=== PATIENT | male | born 1960 | race Caucasian/White ===

== ENCOUNTER 2017-10-10 09:07 | Emergency (ER) | payer MEDICAID ==
[2017-10-10] MEDS ORDERED: Acetaminophen/HYDROcodone 325-5 MG Tab ONE (09:30)
[2017-10-10] MEDS ORDERED: Ondansetron 4 MG Tab.DIS ONE (09:30)
--- NOTE | 2017-10-10 09:35 | EDM.PDOC ---
ED HPI GENERAL MEDICAL PROBLEM - General Chief Complaint: General Stated Complaint: ALLERGIC REACTION Time Seen by Provider: 10/10/17 09:20 Source of Information: Reports: Patient, RN History Limitations: Reports: No Limitations - History of Present Illness INITIAL COMMENTS - FREE TEXT/NARRATIVE: 57 yr male presents with severe lower right flank pain. States no hematuria. He is from [place] and has been here ice fishing and getting ready to go home today. States no injury to back and no heavy lifting done. States significant hx of CAD with CABG and diabetes Type 2. States blood sugar this am was 180. Pt moaning with pain. Toradol 60 mg IM given and pt had taken oxycodone before he got here. Pt has started a new diabetic injectable medication. Pt started vomiting now 934. Urine sample taken. Onset: Today, Sudden Onset Date: 10/10/17 Location: Reports: Other (flank pain/lower back pain) Right Flank Pain Score (Numeric/FACES): 10 - Related Data Allergies Allergy/AdvReac Type Severity Reaction Status Date / Time prochlorperazine Allergy Leg Cramps Verified 10/10/17 10:40 [From Compazine] ED ROS GENERAL - Review of Systems Review Of Systems: See Below GI/Abdominal: Reports: Nausea, Vomiting : Reports: Flank Pain. Denies: Dysuria, Hematuria ED EXAM, GENERAL - Physical Exam Exam: See Below Exam Limited By: No Limitations General Appearance: Alert, Other (severe pain) Ears: Hearing Grossly Normal Nose: Normal Inspection Throat/Mouth: Normal Voice, No Airway Compromise Head: Atraumatic, Normocephalic Neck: Supple, Non-Tender Respiratory/Chest: No Respiratory Distress, Lungs Clear, Normal Breath Sounds Cardiovascular: Regular Rate, Rhythm, No Edema GI/Abdominal: Soft, Tender (upper GI tenderness and lower right flank pain). No : Rigid, Rebound Back Exam: Full Range of Motion, Other (right flank pain) Extremities: Normal Range of Motion Neurological: Alert, Oriented, Normal Cognition Skin Exam: Warm, Normal Color, Diaphoretic Lymphatic: No Adenopathy Course - Vital Signs Last Recorded V/S: Last Vital Signs Temp 96.5 F 10/10/17 09:12 Pulse 94 10/10/17 09:12 Resp 20 10/10/17 09:12 BP 153/77 H 10/10/17 09:12 Pulse Ox 100 10/10/17 09:12 - Orders/Labs/Meds Labs: Laboratory Tests 10/10/17 10/10/17 10/10/17 Range/Units 09:25 09:40 09:40 WBC 13.2 H (4.0-11.0) K/uL RBC 5.29 (4.50-6.50) M/uL Hgb 16.4 (13.0-18.0) g/dL Hct 48.5 (40.0-54.0) % MCV 92 (76-96) fL MCH 31.0 (27.0-32.0) pg MCHC 33.8 (31.0-35.0) g/dL RDW 14.5 (11.0-16.0) % Plt Count 151 (150-400) K/uL MPV 11.7 H (6.0-10.0) fL Neut % (Auto) 78.2 H (45.0-70.0) % Lymph % (Auto) 15.1 L (20.0-40.0) % [place] % (Auto) 5.1 (3.0-10.0) % Eos % (Auto) 1.3 (1.0-5.0) % Baso % (Auto) 0.3 (0.0-0.5) % Neut # (Auto) 10.35 H (2.00-7.50) K/uL Lymph # (Auto) 2.00 (1.50-4.00) K/uL [place] # (Auto) 0.67 (0.20-0.80) K/uL Eos # (Auto) 0.17 (0.04-0.40) K/uL Baso # (Auto) 0.04 (0.02-0.10) K/uL PT 37.2 H (9.0-11.5) sec INR 4.0 H (1.0-3.5) Sodium (136-145) mmol/L Potassium (3.5-5.1) mmol/L Chloride (98-107) mmol/L Carbon Dioxide (21.0-32.0) mmol/L Anion Gap (5.0-15.0) mmol/L BUN (8-26) mg/dL Creatinine (0.70-1.30) mg/dL Est Cr Clr Drug Dosing Estimated GFR (MDRD) (>60) MLS/MIN BUN/Creatinine Ratio (6-25) Glucose (74-100) mg/dL Calcium (8.5-10.1) mg/dL Total Bilirubin (0.0-1.0) mg/dL AST (15-37) U/L ALT (12-78) U/L Alkaline Phosphatase (46-116) U/L Total Protein (6.4-8.2) g/dL Albumin (3.4-5.0) g/dL Globulin (2.2-4.2) g/dL Albumin/Globulin Ratio (0.8-2.0) Urine Color Yellow Urine Appearance Clear (CLEAR) Urine pH 5.5 (5.0-8.0) Ur Specific [place] 1.015 (1.003-1.030) Urine Protein Trace H (NEGATIVE) mg/dL Urine Glucose (UA) 500 H (NEGATIVE) mg/dL Urine Ketones 40 H (NEGATIVE) mg/dL Urine Occult Blood Moderate H (NEGATIVE) Urine Nitrite Negative (NEGATIVE) Urine Bilirubin Negative (NEGATIVE) Urine Urobilinogen 0.2 (0.2-1.0) E.U./dL Ur Leukocyte Esterase Negative (NEGATIVE) Urine RBC 20-30 H /HPF Urine WBC 0-5 H /HPF 10/10/17 Range/Units 09:40 WBC (4.0-11.0) K/uL RBC (4.50-6.50) M/uL Hgb (13.0-18.0) g/dL Hct (40.0-54.0) % MCV (76-96) fL MCH (27.0-32.0) pg MCHC (31.0-35.0) g/dL RDW (11.0-16.0) % Plt Count (150-400) K/uL MPV (6.0-10.0) fL Neut % (Auto) (45.0-70.0) % Lymph % (Auto) (20.0-40.0) % [place] % (Auto) (3.0-10.0) % Eos % (Auto) (1.0-5.0) % Baso % (Auto) (0.0-0.5) % Neut # (Auto) (2.00-7.50) K/uL Lymph # (Auto) (1.50-4.00) K/uL [place] # (Auto) (0.20-0.80) K/uL Eos # (Auto) (0.04-0.40) K/uL Baso # (Auto) (0.02-0.10) K/uL PT (9.0-11.5) sec INR (1.0-3.5) Sodium 140 (136-145) mmol/L Potassium 4.1 (3.5-5.1) mmol/L Chloride 102 (98-107) mmol/L Carbon Dioxide 24.0 (21.0-32.0) mmol/L Anion Gap 18.1 H (5.0-15.0) mmol/L BUN 17 (8-26) mg/dL Creatinine 1.39 H (0.70-1.30) mg/dL Est Cr Clr Drug Dosing TNP Estimated GFR (MDRD) 52 L (>60) MLS/MIN BUN/Creatinine Ratio 12.2 (6-25) Glucose 265 H (74-100) mg/dL Calcium 9.2 (8.5-10.1) mg/dL Total Bilirubin 0.4 (0.0-1.0) mg/dL AST 29 (15-37) U/L ALT 57 (12-78) U/L Alkaline Phosphatase 78 (46-116) U/L Total Protein 7.3 (6.4-8.2) g/dL Albumin 4.2 (3.4-5.0) g/dL Globulin 3.1 (2.2-4.2) g/dL Albumin/Globulin Ratio 1.4 (0.8-2.0) Urine Color Urine Appearance (CLEAR) Urine pH (5.0-8.0) Ur Specific [place] (1.003-1.030) Urine Protein (NEGATIVE) mg/dL Urine Glucose (UA) (NEGATIVE) mg/dL Urine Ketones (NEGATIVE) mg/dL Urine Occult Blood (NEGATIVE) Urine Nitrite (NEGATIVE) Urine Bilirubin (NEGATIVE) Urine Urobilinogen (0.2-1.0) E.U./dL Ur Leukocyte Esterase (NEGATIVE) Urine RBC /HPF Urine WBC /HPF - Re-Assessments/Exams Free Text/Narrative Re-Assessment/Exam: 10/10/17 10:20 INR is 4.0. Will need to adjust coumadin dose. Pt not sure on his dose. Recommend pt to contact his coumadin clinic to adjust dose. Reviewed quick read of CT with pt and possible kidney stone noted to right kidney. Lab results reviewed with pt. Recommend F/U with PCP tomorrow when returns home. Recommend straining urine. Vicoden from ER given to pt to take every 4-6 hour as needed for pain. Zofran given from ER to take every 6-8 hr as needed for nausea. Pt states he feels much better and is ambulatory in the ER. Will discharge to care of friends with F/U with coumadin clinic and PCP when return to home tonight with coumadin clinic and PCP in am. Departure - Departure Time of Disposition: 10:56 Disposition: Home, Self-Care 01 Condition: Good Clinical Impression: Renal calculi - Discharge Information Instructions: Acetaminophen; Hydrocodone tablets or capsules, Ondansetron oral dissolving tablet, Kidney Stones, [id number] Referrals: PCP,None [Primary Care Provider] - Forms: ED Department Discharge Additional Instructions: Drink plenty of fluids. Strain your urine when you void. If you collect the stone bring it in to your clinic to have it analyzed. Call your Coumadin clinic at home to have your Coumadin dose adjusted. Your INR was 4.0. Take Zofran 1 tab every 6-8 hours as needed for nausea Take Vicodin 1-2 tabs every 6 hours as needed for pain.
--- NOTE | 2017-10-10 11:04 | CT ---
DATE OF SERVICE: 10/10/17 CLINICAL DATA: lower right flank pain UNENHANCED ABDOMEN AND PELVIC CT: Multislice axial acquisition was performed. No priors. The patient is status post median sternotomy and mitral valve replacement. The heart size is normal. No pericardial effusion. There are coronary artery calcifications. There is a small hiatal hernia. The lung bases are clear. There is diffuse fatty infiltration of the liver. No focal hepatic lesions. The gallbladder appears normal. The spleen appears normal. The pancreas is normal size. No pancreatic duct dilatation. There are a couple of small calcifications in the pancreas which may related to chronic pancreatitis. No evidence of acute pancreatitis. There is a 1 cm nodule medial to the spleen consistent with an accessory spleen. The right and left adrenals appear normal. The right and left kidneys appear normal. No nephrocalcinosis or nephrolithiasis. No hydronephrosis or hydroureter. There is a small amount of fluid within the bladder. It appears normal. The prostate is enlarged. There are calcifications within the prostate consistent with chronic prostatitis. The appendix is not dilated. No evidence of appendicitis. There is diverticulosis of the colon. No evidence of diverticulitis. No free air. No free fluid. No dilated loops of bowel. There are multiple fluid-filled loops of small bowel within the mid and lower abdomen. They do contain a few scattered air-fluid levels. Enteritis should be considered. No adenopathy. No aortic aneurysm. There is an umbilical hernia containing fat. I do not see any other significant findings. [id number] [facility]
== END 2017-10-10 10:56 | disposition home or self-care (01) ==
LOC: LB.ED 09:07
DX: N20.0 Calculus of kidney (principal); E11.9 Type 2 diabetes mellitus without complications; I25.10 Atherosclerotic heart disease of native coronary artery without angina pectoris; Z95.1 Presence of aortocoronary bypass graft; Z88.8 Allergy status to other drugs, medicaments and biological substances
CPT/HCPCS: 36415; 74176; 80053; 81001; 85025; 85610; 99284; A9270